=== PATIENT | female | born 1965 | race Two or more races ===

== ENCOUNTER → 2017-01-17 | Outpatient (CLI) | payer OTHER ==
--- NOTE | 2017-01-17 08:20 | RAD ---
Indication knee pain. Chronic. AP and lateral views of the left knee were obtained. There are no significant degenerative changes. No acute finding is seen. There is a probable joint effusion.
--- NOTE | 2017-01-17 08:24 | RAD ---
Indication:Abdominal pain Grayscale images of the abdomen were obtained. Comparison none Liver:There is some increased attenuation of the ultrasound beam by the liver compatible with fatty infiltration. A focal mass lesion is not seen in the visualized liver. Gallbladder:Surgically absent. The common bile duct diameter of approximately 2 mm is normal Spleen:Normal Pancreas:Poorly visualized and largely obscured by gas Kidneys:Normal Abdominal aorta and IVC:As visualized normal but, similar to the pancreas, largely obscured Ancillary findings:None Impression:Fatty infiltration of the liver. No acute finding seen. Status post cholecystectomy. Midline structures largely obscured
== END | disposition home or self-care (01) ==
LOC: RAD 08:00
PROVIDERS: ATTEND Family Medicine
DX: K76.0 Fatty (change of) liver, not elsewhere classified (principal); M25.562 Pain in left knee; Z90.49 Acquired absence of other specified parts of digestive tract; G89.29 Other chronic pain
CPT/HCPCS: 73560; 76700

== ENCOUNTER → 2018-10-10 | Day surgery (SDC) | payer OTHER ==
[~2018-10-10] MED LIST: DEXAMETHASONE SOD PHOS 20 MG/5 ML VIAL. ONE; FAMOTIDINE 20 MG/2 ML VIAL ONE; HYDR-3164 PO; HYDROcodone/APAP 5/325MG 1 TAB TABLET PO ONE; HYDROmorphone 2 MG/ML VIAL IV PRN; IV RINGERS,LACTATED 1000ML 1,000 ML IV SCH; KETOROLAC 30 MG/ML INJ FOR OR. INJ ONE; LIDOCAINE 1% PF 2 ML VIAL. ID PRN; LIDOCAINE 2% PF Vial for OR 5 ML VIAL. ONE; LUBI8CAP4 PO; METOCLOPRAMIDE HCL 10 MG/2 ML VIAL. ONE; MORPHINE SULFATE 4 MG/ML VIAL. IV PRN; NAPR-514 PO; NAPROXEN 500 MG TABLET PO SCH; ONDANSETRON PF 4 MG/2 ML VIAL. IV PRN; ONDANSETRON PF 4 MG/2 ML VIAL. ONE; PROCHLORPERAZINE 10 MG/2 ML VIAL. IV PRN; PROPOFOL 20 ML IV ONE; SEVOFLURANE 31 TO 60 MINUTES. IH ONE; fentaNYL PF VIAL 100 MCG/2 ML VIAL IV PRN; fentaNYL PF VIAL 100 MCG/2 ML VIAL ONE
--- NOTE | 2018-10-10 07:31 | PDOC1 ---
History and Physical Date of Admission Date of Admission DATE: 10/10/18 TIME: 07:26 Source Source: Chart review, Patient History of Present Illness History of Present Illness Referred from Dr Smith for PMB Past Surgical History Past Surgical History: Breast Biopsy, Current Medications Current Medications Current Medications Ondansetron HCl (Zofran) 4 mg PRN Q6HRS PRN IV NAUSEA/VOMITING; Start 10/10/18 at 07:00; Stop 10/10/18 at 18:00 Fentanyl Citrate (Fentanyl 2ml Vial) 25 mcg PRN Q5MIN PRN IV MILD PAIN; Start 10/10/18 at 07:00; Stop 10/10/18 at 18:00 Fentanyl Citrate (Fentanyl 2ml Vial) 50 mcg PRN Q5MIN PRN IV MODERATE TO SEVERE PAIN; Start 10/10/18 at 07:00; Stop 10/10/18 at 18:00 Morphine Sulfate (Morphine Sulfate) 1 mg PRN Q10MIN PRN IV SEVERE PAIN; Start 10/10/18 at 07:00; Stop 10/11/18 at 06:59 Ringer's Solution 1,000 ml @ 30 mls/hr Q24H IV Last administered on 10/10/18at 06:29; Start 10/10/18 at 07:00; Stop 10/10/18 at 18:59 Lidocaine HCl (Xylocaine-Mpf 1% 2ml Vial) 2 ml PRN 1X PRN ID PRIOR TO IV START ; Start 10/10/18 at 07:00; Stop 10/10/18 at 18:00 Hydromorphone HCl (Dilaudid) 0.5 mg PRN Q10MIN PRN IV SEV PAIN, Second choice; Start 10/10/18 at 07:00; Stop 10/10/18 at 18:00 Prochlorperazine Edisylate (Compazine) 5 mg PACU PRN PRN IV NAUSEA, MRX1; Start 10/10/18 at 07:00; Stop 10/10/18 at 18:00 Propofol 20 ml @ As Directed STK-MED ONCE IV ; Start 10/10/18 at 07:24; Stop at 07:26; Status DC Lidocaine HCl (Lidocaine Pf 2% Vial) 5 ml STK-MED ONCE .ROUTE ; Start 10/10/18 at 07:24; Stop 10/10/18 at 07:26; Status DC Metoclopramide HCl (Reglan Vial) 10 mg STK-MED ONCE .ROUTE ; Start 10/10/18 at 07:24; Stop 10/10/18 at 07:26; Status DC Famotidine (Pepcid Vial) 20 mg STK-MED ONCE .ROUTE ; Start 10/10/18 at 07:24; Stop 10/10/18 at 07:26; Status DC Active Scripts Active Reported Amitiza (Lubiprostone) 8 Mcg Capsule 1 Cap PO BID Allergies Allergies: Coded Allergies: milk (Verified Adverse Reaction, Mild, 10/10/18) ABDOMINAL PAIN/BLOATING ROS Genitourinary: YES Pain, YES Other (PMB) Physical Exam General: Alert, Oriented X3, Cooperative, No acute distress Lungs: Clear to auscultation, Normal air movement Breasts: Normal, Rt breast nml w/o mass, Lt breast nml w/o mass, Nipples normal Abdomen: Normal bowel sounds, Soft, No tenderness, No hepatosplenomegaly, No masses Rectal Exam: deferred PELVIC: Nml ext genitalia, Nml ext vulva, Nml ext vagina, Nml ext cervic, Tenderness Extremities: No clubbing, No cyanosis, No edema, Normal pulses, No tenderness/ swelling Skin: No rashes, No breakdown, No significant lesion Neuro: Normal gait, Normal speech, Strength at 5/5 X4 ext, Normal tone, Sensation intact, Cranial nerves 3-12 NL, Reflexes 2+ Psych/Mental Status: Mental status NL, Mood NL Vitals Vitals Vital Signs Date Time Temp Pulse Resp B/P (MAP) Pulse Ox O2 Delivery O2 Flow Rate FiO2 10/10/18 06:23 97.9 69 16 130/64 98 Room Air 97.9 VTE Prophylaxis Ordered VTE Prophylaxis Devices: Yes VTE Pharmacological Prophylaxi: No Assessment/Plan Assessment/Plan PMB Diagnostic hysteroscopy LUISA Najera MD Oct 10, 2018 07:31
--- NOTE | 2018-10-10 08:30 | PDOC ---
BRIEF OPERATIVE NOTE Date: Oct 10, 2018 Pre-Op Diagnosis PMB Post-Op Diagnosis SAME Procedure Performed Hysteroscopy D and C Surgeon Mariana Anesthesia Type: General Blood Loss 20cc Specimens Obtained EMB Findings Dictated Complications None LUISA LEBLANC MD Oct 10, 2018 08:30
--- NOTE | 2018-10-10 09:11 | OP ---
DATE OF SURGERY: 10/10/2018 PREOPERATIVE DIAGNOSIS: Postmenopausal bleeding. POSTOPERATIVE DIAGNOSES: Postmenopausal bleeding. PROCEDURES: 1. Exam under anesthesia. 2. Diagnostic hysteroscopy with TruClear with endometrial biopsy. SURGEON: Cj Peña MD DUCT MAKER: None. ANESTHESIA: General. ESTIMATED BLOOD LOSS: 20 mL. FLUIDS: Crystalloid. SPECIMENS: Products of conception. FINDINGS: The patient appeared to have a posterior lower segment polyp approximately 3-4 mm in length. No other uterine pathology was identified, both cornu were seen. No evidence of overt endometrial pathology appreciated. The uterus was approximately 8-9 weeks size, axial, globular, no adnexal masses. COMPLICATIONS: None. CONDITION: Stable. DESCRIPTION OF PROCEDURE: Risks, benefits, indications, alternatives discussed in detail with the patient. The patient was brought to the OR theater, placed in dorsal lithotomy position in Lew stirrups. After adequate general anesthesia, the patient was prepped and draped in sterile manner. Exam under anesthesia was performed with the above findings noted. Posterior weighted speculum was placed in the vaginal vault. Cervix was grasped with a single-tooth tenaculum. Cervix was sounded to approximately 9 cm uterine sound, dilated up to receive the hysteroscope. Hysteroscope was placed, [employer] veterans employment representative, Diego, was in attendance for assistance. The above findings were noted on evaluation of endometrial cavity. The TruClear biopsy device was placed, the above polyp was removed with other samples of the uterine cavity performed with the tissue resection TruClear device. Good hemostasis was assured. 1300 mL of fluid were used with 360 mL deficit. Single tooth tenaculum was removed. One puncture site was bleeding and 3-0 Vicryl with [id number] stitch was used to control the bleeding. Vaginal vault was wiped clean of any blood or debris. The cervix was then visualized. No further bleeding from the puncture site appreciated. The procedure was terminated. Sponge, needle and instrument counts were correct x 2 per nursing staff. The patient went to postop anesthesia recovery in stable condition. CJ PEÑA MD DR: MARGARETH/francis JOB#: [id number] / [id number]
[2018-10-10 09:30] VITALS: BP 143/78
--- NOTE | 2018-10-13 16:09 | PATHOLOGY ---
[facility] Accession Number: [id number] . 01 Material submitted: . POSTERIOR LOWER SEGMENT ENDOMETRIAL POLYP . 01 Clinical history: . Polyp. . 02 Diagnosis: Endometrial biopsy, posterior lower uterine segment polyp: - Endometrial polyp. - Inactive / weakly proliferative endometrium. . (JPM:mm; 10/13/2018) [facility]/10/13/2018 . 02 Comment: Sections of the endometrial biopsy reveal segments of endometrial polyp and inactive / weakly proliferative endometrium. There is no evidence of hyperplasia or malignancy. . (JPM:mm; 10/13/2018) . 02 Electronically signed: . Horace Beck MD, Pathologist NPI- [id number] . 01 Gross description: . Received in formalin labeled "Toño, Pauly, posterior lower segment polyp" and additionally labeled on the requisition as, "endometrial" is a 2.3 x 0.8 x 0.2 cm aggregate of diaz-brown friable soft tissue fragments. The specimen is submitted entirely in cassette A1. ([facility]; 10/12/2018) SY/SYC . 02 Pathologist provided ICD-10: N84.0 . 02 CPT . 426341 Specimen Comment: A courtesy copy of this report has been sent to Specimen Comment: [phone], . Specimen Comment: Report sent to / DR CEVALLOS Specimen Comment: A duplicate report has been generated due to demographic updates. Performed at: 01 [facility] [address], [place] [id number] MD Wes Baxter MD Phone: [phone] Performed at: 02 [facility] [id number] MD Horace Beck MD Phone: [phone]
== END | disposition home or self-care (01) ==
LOC: SURG 05:57
PROVIDERS: ATTEND Specialist
DX: N84.0 Polyp of corpus uteri (principal); K58.9 Irritable bowel syndrome, unspecified; N95.0 Postmenopausal bleeding; E66.9 Obesity, unspecified; Z91.011 Allergy to milk products; Z98.890 Other specified postprocedural states; Z90.49 Acquired absence of other specified parts of digestive tract; Z80.1 Family history of malignant neoplasm of trachea, bronchus and lung; Z80.0 Family history of malignant neoplasm of digestive organs; Z68.38 Body mass index [BMI] 38.0-38.9, adult
CPT/HCPCS: 58558; 88305; A7015; J1100; J1885; J2001; J2405; J2704; J2765; J3010; J3490

== ENCOUNTER → 2018-11-04 | Outpatient (CLI) | payer OTHER ==
[2018-10-10 09:30] VITALS: BP 143/78
[~2018-11-04] MED LIST changes: -DEXAMETHASONE SOD PHOS 20 MG/5 ML VIAL. ONE; -FAMOTIDINE 20 MG/2 ML VIAL ONE; -HYDROcodone/APAP 5/325MG 1 TAB TABLET PO ONE; -HYDROmorphone 2 MG/ML VIAL IV PRN; -IV RINGERS,LACTATED 1000ML 1,000 ML IV SCH; -KETOROLAC 30 MG/ML INJ FOR OR. INJ ONE; -LIDOCAINE 1% PF 2 ML VIAL. ID PRN; -LIDOCAINE 2% PF Vial for OR 5 ML VIAL. ONE; -METOCLOPRAMIDE HCL 10 MG/2 ML VIAL. ONE; -MORPHINE SULFATE 4 MG/ML VIAL. IV PRN; -NAPROXEN 500 MG TABLET PO SCH; -ONDANSETRON PF 4 MG/2 ML VIAL. IV PRN; -ONDANSETRON PF 4 MG/2 ML VIAL. ONE; -PROCHLORPERAZINE 10 MG/2 ML VIAL. IV PRN; -PROPOFOL 20 ML IV ONE; -SEVOFLURANE 31 TO 60 MINUTES. IH ONE; -fentaNYL PF VIAL 100 MCG/2 ML VIAL IV PRN; -fentaNYL PF VIAL 100 MCG/2 ML VIAL ONE
--- NOTE | 2018-11-04 09:38 | RAD ---
Abdominal ultrasound, 11/04/2018: HISTORY: Abdominal pain The gallbladder is surgically absent. The common hepatic duct measures 8-9 mm which is within normal limits for the postcholecystectomy state. The hepatic echogenicity is somewhat increased, most commonly due to fatty change. No hepatic mass is identified. The visualized portions of the pancreas and both kidneys are unremarkable. The spleen is of normal size. The abdominal aorta and inferior vena cava are unremarkable. No free fluid is evident in the abdomen. IMPRESSION: 1. Status post cholecystectomy. 2. Increased hepatic echogenicity suggesting fatty change. Pelvic ultrasound, 11/04/2018: HISTORY: Pelvic pain Transabdominal and transvaginal scans were obtained. The uterus measures 8.5 x 5.4 x 5.3 cm. It demonstrates a heterogeneous echo pattern. There is a 2.4 cm mildly hypoechoic mass present posteriorly. There appears to be a smaller relatively isoechoic mass anteriorly in the fundal region. The findings suggest uterine fibroids. The central uterine echo complex is distorted and poorly defined. The left ovary is of normal size. The right ovary could not be visualized. No adnexal mass is seen. No free fluid is evident in the pelvis. IMPRESSION: 1. Heterogeneous uterus containing several masses most compatible with uterine fibroids. 2. No adnexal abnormality is detected, although the right ovary was not visualized. Electronically signed by: Uzair Sousa MD (11/04/2018 9:35 AM) [facility]
== END | disposition home or self-care (01) ==
LOC: US 07:14
PROVIDERS: ATTEND Family Medicine
DX: N85.8 Other specified noninflammatory disorders of uterus (principal); Z90.49 Acquired absence of other specified parts of digestive tract
CPT/HCPCS: 76700; 76830; 76856